=== PATIENT | male | born 1950 | race Caucasian/White ===

== ENCOUNTER 2016-11-07 19:18 | Emergency (ER) | payer OTHER, MEDICAID ==
[2016-11-07] MEDS ORDERED: SODIUM CHLORIDE 0.9% (FLUSH) 10 ML SYG ONE (19:30)
[2016-11-07] MEDS ORDERED: SODIUM CHLORIDE 0.9% 1000ML 1,000 ML IVS ONE (19:30)
[2016-11-07] MEDS ORDERED: SODIUM BICARBONATE SYRINGE 50 MEQ/50 ML SYG IV ONE (19:30)
[2016-11-07] MEDS ORDERED: EPINEPHrine INJ 0.1 MG/ML 10 ML SYG ONE (19:30)
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
== END 2016-11-07 19:50 | disposition expired ==
LOC: ER 19:18
DX: I46.9 Cardiac arrest, cause unspecified (principal); I10 Essential (primary) hypertension; E11.9 Type 2 diabetes mellitus without complications; Z86.19 Personal history of other infectious and parasitic diseases; Z99.11 Dependence on respirator [ventilator] status; Z93.1 Gastrostomy status
CPT/HCPCS: 92950; 94770; A4216; J7030